=== PATIENT | female | born 1995 | race Caucasian/White ===

== ENCOUNTER 2018-07-30 09:47 | Emergency (ER) | payer OTHER ==
[~2018-07-30] VITALS: Ht 165.1 cm; Wt 88.5 kg
[2018-07-30 09:51] VITALS: Ht 165.1 cm; Wt 88.5 kg
[2018-07-30 10:50] VITALS: BP 107/72
== END 2018-07-30 10:50 | disposition home or self-care (01) ==
LOC: ED 09:47
DX: S90.122A Contusion of left lesser toe(s) without damage to nail, initial encounter (principal); Z88.5 Allergy status to narcotic agent; W22.8XXA Striking against or struck by other objects, initial encounter; Y93.89 Activity, other specified; Y92.89 Other specified places as the place of occurrence of the external cause; Y99.8 Other external cause status